=== PATIENT | male | born 1985 | race Caucasian/White ===

== ENCOUNTER 2021-12-06 13:10 | Emergency (ER) | payer OTHER ==
[~2021-12-06] VITALS: Ht 180.3 cm; Wt 90.9 kg
[2021-12-06] MEDS ORDERED: IBUP-1506 PO (13:22)
[2021-12-06 13:23] VITALS: BP 137/45
[2021-12-06] MEDS ORDERED: ONDANSETRON HCL 4 MG TABLET PO ONE (14:30)
[2021-12-06] MEDS ORDERED: DIPHENOXYLATE/ATROP 2.5-0.025 MG TABLET PO ONE (14:30)
[2021-12-06] MEDS ORDERED: ACETAMINOPHEN 500 MG TABLET PO ONE (14:30)
[2021-12-06] MEDS ORDERED: IBUP-2077 PO (14:40)
[2021-12-06] MEDS ORDERED: CLOB15CR10 TP (15:54)
[2021-12-06] MEDS ORDERED: DIPH-654 PO (15:54)
[2021-12-06] MEDS ORDERED: ACET-66 PO (15:54)
[2021-12-06] MEDS ORDERED: ONDA-104 PO (15:54)
[2021-12-06 16:33] LABS: COVID AG,FIA SOURCE NASAL SWAB
== END 2021-12-06 17:23 | disposition home or self-care (01) ==
LOC: EMS 13:30
DX: K52.9 Noninfective gastroenteritis and colitis, unspecified (principal); L30.9 Dermatitis, unspecified; F17.210 Nicotine dependence, cigarettes, uncomplicated; M79.10 Myalgia, unspecified site; R09.89 Other specified symptoms and signs involving the circulatory and respiratory systems; Z20.822 Contact with and (suspected) exposure to COVID-19
CPT/HCPCS: 99283; 87426; Q0162

== ENCOUNTER 2022-03-10 02:37 | Emergency (ER) | payer OTHER ==
[~2022-03-10] VITALS: Ht 172.7 cm; Wt 79.0 kg
[~2022-03-10 02:37] MED LIST: ACET-66 PO; CLOB15CR10 TP; DIPH-654 PO; IBUP-2077 PO; ONDA-104 PO
[2022-03-10] MEDS ORDERED: CefTRIAXone SODIUM 1 GM/VIAL IM ONE (03:45)
[2022-03-10] MEDS ORDERED: DOXYCYCLINE HYCLATE 100 MG TABLET PO ONE (03:45)
[2022-03-10] MEDS ORDERED: ACETAMINOPHEN 500 MG TABLET PO ONE (03:45)
[2022-03-10] MEDS ORDERED: LIDOCAINE/PF 1% 2 ML VIAL IM ONE (03:45)
[2022-03-10] MEDS ORDERED: AMOX TR/POT CLAV 875 MG/125 MG TABLET PO ONE (03:45)
[2022-03-10] MEDS ORDERED: LIDOCAINE 5% TRANSDERMAL PATCH TD ONE (03:45)
[2022-03-10] MEDS ORDERED: AMOX1TAB16 PO (04:53)
[2022-03-10] MEDS ORDERED: DOXY-354 PO (04:53)
[2022-03-10 05:12] VITALS: BP 134/76
== END 2022-03-10 05:35 | disposition home or self-care (01) ==
LOC: EMS 02:37
DX: S20.212A Contusion of left front wall of thorax, initial encounter (principal); K03.81 Cracked tooth; F17.210 Nicotine dependence, cigarettes, uncomplicated; Z11.3 Encounter for screening for infections with a predominantly sexual mode of transmission; Y08.89XA Assault by other specified means, initial encounter; Y93.89 Activity, other specified; Y92.89 Other specified places as the place of occurrence of the external cause; Y99.8 Other external cause status
CPT/HCPCS: 71101; 99284; Z7502; Z7610

== ENCOUNTER 2022-03-12 17:21 | Emergency (ER) | payer OTHER ==
[~2022-03-12] VITALS: Ht 180.3 cm; Wt 95.5 kg
[~2022-03-12 17:21] MED LIST changes: +AMOX1TAB16 PO; +DOXY-354 PO
[2022-03-12 17:24] VITALS: BP 138/64
[2022-03-12] MEDS ORDERED: HYDR-4723 PO (19:02)
== END 2022-03-12 19:18 | disposition home or self-care (01) ==
LOC: EMS 17:21
DX: K08.89 Other specified disorders of teeth and supporting structures (principal); F17.210 Nicotine dependence, cigarettes, uncomplicated
CPT/HCPCS: 99281; Z7502

== ENCOUNTER 2022-03-13 23:35 | Emergency (ER) | payer OTHER ==
[~2022-03-13] VITALS: Ht 180.3 cm; Wt 96.1 kg
[~2022-03-13 23:35] MED LIST changes: +HYDR-4723 PO
[2022-03-14 00:59] VITALS: BP 129/85
[2022-03-14] MEDS ORDERED: DOXY-354 PO (01:03)
[2022-03-14] MEDS: DOXYCYCLINE HYCLATE 100 MG TABLET PO ONE ×2 (01:13→01:43)
[2022-03-14] MEDS: ACETAMINOPHEN 500 MG TABLET PO ONE ×2 (01:13→01:42)
== END 2022-03-14 02:03 | disposition left against medical advice (07) ==
LOC: EMS 23:36
DX: R31.9 Hematuria, unspecified (principal); A64 Unspecified sexually transmitted disease; F17.210 Nicotine dependence, cigarettes, uncomplicated
CPT/HCPCS: 99283

== ENCOUNTER 2022-03-19 21:02 | Emergency (ER) | payer OTHER ==
[~2022-03-19] VITALS: Ht 172.7 cm; Wt 81.8 kg
[~2022-03-19 21:02] MED LIST changes: -ACET-66 PO; -AMOX1TAB16 PO; -CLOB15CR10 TP; -DIPH-654 PO; -HYDR-4723 PO; -IBUP-2077 PO; -ONDA-104 PO
[2022-03-20 02:15] VITALS: BP 115/56
== END 2022-03-20 02:16 | disposition home or self-care (01) ==
LOC: EMS 21:02
DX: S22.32XA Fracture of one rib, left side, initial encounter for closed fracture (principal); S06.0X0A Concussion without loss of consciousness, initial encounter; F17.210 Nicotine dependence, cigarettes, uncomplicated; Y08.89XA Assault by other specified means, initial encounter; Y93.89 Activity, other specified; Y92.89 Other specified places as the place of occurrence of the external cause; Y99.8 Other external cause status
CPT/HCPCS: 70450; 71101; 99284

== ENCOUNTER 2022-03-24 12:48 | Emergency (ER) | payer OTHER | END 2022-03-24 14:59 | disposition left against medical advice (07) | LOC: EMS 13:00 | DX: Z53.21 Procedure and treatment not carried out due to patient leaving prior to being seen by health care provider (principal) ==

== ENCOUNTER 2022-03-25 21:49 | Emergency (ER) | payer OTHER ==
[~2022-03-25] VITALS: Ht 175.3 cm; Wt 84.1 kg
[2022-03-25 21:50] VITALS: BP 125/71
== END 2022-03-25 22:21 | disposition left against medical advice (07) ==
LOC: EMS 21:55
DX: M54.9 Dorsalgia, unspecified (principal); R51.9 Headache, unspecified; Z53.21 Procedure and treatment not carried out due to patient leaving prior to being seen by health care provider

== ENCOUNTER 2022-04-04 09:35 | Emergency (ER) | payer OTHER ==
[~2022-04-04] VITALS: Ht 180.3 cm; Wt 93.2 kg
[2022-04-04 09:52] VITALS: BP 133/84
== END 2022-04-04 13:30 | disposition left against medical advice (07) ==
LOC: EMS 09:37
DX: Z53.21 Procedure and treatment not carried out due to patient leaving prior to being seen by health care provider (principal)

== ENCOUNTER 2022-04-09 03:33 | Emergency (ER) | payer OTHER ==
[~2022-04-09] VITALS: Ht 180.3 cm; Wt 93.2 kg
[2022-04-09 03:42] VITALS: BP 150/86
== END 2022-04-09 06:52 | disposition left against medical advice (07) ==
LOC: EMS 03:34
DX: R31.9 Hematuria, unspecified (principal); Z53.21 Procedure and treatment not carried out due to patient leaving prior to being seen by health care provider

== ENCOUNTER 2022-04-13 07:43 | Emergency (ER) | payer OTHER ==
[~2022-04-13] VITALS: Ht 180.3 cm; Wt 95.5 kg
[2022-04-13 08:04] VITALS: BP 129/76
[2022-04-13] MEDS ORDERED: LIDOCAINE 5% TRANSDERMAL PATCH TD ONE (08:15)
== END 2022-04-13 08:41 | disposition left against medical advice (07) ==
LOC: EMS 07:44
DX: M54.50 Low back pain, unspecified (principal); F17.210 Nicotine dependence, cigarettes, uncomplicated
CPT/HCPCS: 99282

== ENCOUNTER 2022-04-30 00:37 | Emergency (ER) | payer OTHER ==
[~2022-04-30] VITALS: Ht 180.3 cm; Wt 93.2 kg
[2022-04-30] MEDS ORDERED: ACETAMINOPHEN 500 MG TABLET PO ONE (01:30)
[2022-04-30 02:20] VITALS: BP 135/88
== END 2022-04-30 02:53 | disposition left against medical advice (07) ==
LOC: EMS 00:38
DX: S09.90XA Unspecified injury of head, initial encounter (principal); F17.210 Nicotine dependence, cigarettes, uncomplicated; X58.XXXA Exposure to other specified factors, initial encounter; Y93.89 Activity, other specified; Y92.89 Other specified places as the place of occurrence of the external cause; Y99.8 Other external cause status
CPT/HCPCS: 99282; Z7502; Z7610

== ENCOUNTER 2022-05-11 03:04 | Emergency (ER) | payer OTHER ==
[~2022-05-11] VITALS: Ht 180.3 cm; Wt 93.2 kg
[2022-05-11 03:06] VITALS: BP 139/88
== END 2022-05-11 03:28 | disposition left against medical advice (07) ==
LOC: EMS 03:09
DX: S00.93XA Contusion of unspecified part of head, initial encounter (principal); F17.210 Nicotine dependence, cigarettes, uncomplicated; Y04.8XXA Assault by other bodily force, initial encounter; Y93.89 Activity, other specified; Y92.89 Other specified places as the place of occurrence of the external cause; Y99.8 Other external cause status
CPT/HCPCS: 99281; Z7502

== ENCOUNTER 2022-05-25 09:13 | Emergency (ER) | payer OTHER ==
[~2022-05-25] VITALS: Ht 180.3 cm; Wt 95.5 kg
[2022-05-25 09:17] VITALS: BP 140/83
== END 2022-05-25 10:19 | disposition left against medical advice (07) ==
LOC: EMS 09:16
DX: Z53.21 Procedure and treatment not carried out due to patient leaving prior to being seen by health care provider (principal)
CPT/HCPCS: 99281; Z7502

== ENCOUNTER 2022-06-03 23:22 | Emergency (ER) | payer OTHER ==
[~2022-06-03] VITALS: Ht 180.3 cm; Wt 93.2 kg
[2022-06-04] MEDS ORDERED: ACETAMINOPHEN 500 MG TABLET PO ONE (00:45)
[2022-06-04 02:00] VITALS: BP 122/72
[2022-06-04] MEDS ORDERED: IBUP-45 PO (10:01)
== END 2022-06-04 03:27 | disposition left against medical advice (07) ==
LOC: EMS 23:23
DX: S09.90XA Unspecified injury of head, initial encounter (principal); F17.210 Nicotine dependence, cigarettes, uncomplicated; F14.90 Cocaine use, unspecified, uncomplicated; W22.8XXA Striking against or struck by other objects, initial encounter; Y93.89 Activity, other specified; Y92.89 Other specified places as the place of occurrence of the external cause; Y99.8 Other external cause status
CPT/HCPCS: 70450; 99284

== ENCOUNTER 2022-06-04 09:59 | Emergency (ER) | payer OTHER ==
[~2022-06-04] VITALS: Ht 177.8 cm; Wt 88.6 kg
[2022-06-04] MEDS ORDERED: IBUP-45 PO (10:01)
[2022-06-04 10:19] VITALS: BP 144/88
== END 2022-06-04 10:39 | disposition home or self-care (01) ==
LOC: EMS 10:02
DX: S09.90XA Unspecified injury of head, initial encounter (principal); F17.210 Nicotine dependence, cigarettes, uncomplicated; F14.90 Cocaine use, unspecified, uncomplicated; Y04.8XXA Assault by other bodily force, initial encounter; Y93.89 Activity, other specified; Y92.89 Other specified places as the place of occurrence of the external cause; Y99.8 Other external cause status
CPT/HCPCS: 99281; Z7502

== ENCOUNTER 2022-06-13 00:47 | Emergency (ER) | payer OTHER ==
[~2022-06-13] VITALS: Ht 180.3 cm; Wt 90.9 kg
[~2022-06-13 00:47] MED LIST changes: -DOXY-354 PO; +IBUP-45 PO
[2022-06-13 01:19] VITALS: BP 109/68
== END 2022-06-13 01:21 | disposition home or self-care (01) ==
LOC: EMS 00:49
DX: R26.2 Difficulty in walking, not elsewhere classified (principal); F17.210 Nicotine dependence, cigarettes, uncomplicated; F15.90 Other stimulant use, unspecified, uncomplicated; Z59.00 Homelessness unspecified
CPT/HCPCS: 99281; Z7502

== ENCOUNTER 2022-06-17 18:56 | Emergency (ER) | payer OTHER ==
[~2022-06-17] VITALS: Ht 180.3 cm; Wt 81.8 kg
[2022-06-17 21:05] VITALS: BP 117/78
== END 2022-06-17 22:34 | disposition home or self-care (01) ==
LOC: EMS 18:57
DX: S50.312A Abrasion of left elbow, initial encounter (principal); F17.210 Nicotine dependence, cigarettes, uncomplicated; F15.90 Other stimulant use, unspecified, uncomplicated; F14.90 Cocaine use, unspecified, uncomplicated; Z76.5 Malingerer [conscious simulation]; Z59.00 Homelessness unspecified; X58.XXXA Exposure to other specified factors, initial encounter; Y93.89 Activity, other specified; Y92.89 Other specified places as the place of occurrence of the external cause; Y99.8 Other external cause status
CPT/HCPCS: 99281; Z7502

== ENCOUNTER 2022-06-28 08:07 | Emergency (ER) | payer OTHER | END 2022-06-28 08:23 | disposition left against medical advice (07) | LOC: EMS 08:11 | DX: Z53.21 Procedure and treatment not carried out due to patient leaving prior to being seen by health care provider (principal) ==

== ENCOUNTER 2022-06-29 02:31 | Emergency (ER) | payer OTHER ==
[~2022-06-29] VITALS: Ht 180.3 cm; Wt 95.0 kg
[2022-06-29 03:15] VITALS: BP 132/70
== END 2022-06-29 05:54 | disposition home or self-care (01) ==
LOC: EMS 02:35
DX: S62.92XA Unspecified fracture of left hand, initial encounter for closed fracture (principal); F14.90 Cocaine use, unspecified, uncomplicated; F19.90 Other psychoactive substance use, unspecified, uncomplicated; F17.210 Nicotine dependence, cigarettes, uncomplicated; Z59.00 Homelessness unspecified; V23.49XA Other motorcycle driver injured in collision with car, pick-up truck or van in traffic accident, initial encounter; Y93.55 Activity, bike riding; Y92.89 Other specified places as the place of occurrence of the external cause; Y99.8 Other external cause status
CPT/HCPCS: 99283

== ENCOUNTER 2022-07-16 04:24 | Emergency (ER) | payer OTHER ==
[~2022-07-16] VITALS: Ht 180.3 cm; Wt 90.9 kg
[2022-07-16 06:13] VITALS: BP 138/73
[2022-07-16] MEDS ORDERED: IBUP-1554 PO (06:40)
[2022-07-16] MEDS ORDERED: IBUPROFEN 600 MG TABLET PO ONE (06:45)
[2022-07-16] MEDS ORDERED: IBUP-1492 PO (23:39)
== END 2022-07-16 06:51 | disposition home or self-care (01) ==
LOC: EMS 04:25
DX: S60.222A Contusion of left hand, initial encounter (principal); F17.210 Nicotine dependence, cigarettes, uncomplicated; F15.90 Other stimulant use, unspecified, uncomplicated; F14.90 Cocaine use, unspecified, uncomplicated; Z59.00 Homelessness unspecified; X58.XXXA Exposure to other specified factors, initial encounter; Y93.89 Activity, other specified; Y92.89 Other specified places as the place of occurrence of the external cause; Y99.8 Other external cause status
CPT/HCPCS: 99283

== ENCOUNTER 2022-07-16 22:03 | Emergency (ER) | payer OTHER ==
[~2022-07-16] VITALS: Ht 180.3 cm; Wt 91.0 kg
[~2022-07-16 22:03] MED LIST changes: +IBUP-1554 PO
[2022-07-16 22:45] VITALS: BP 127/90
[2022-07-16] MEDS ORDERED: IBUPROFEN 600 MG TABLET PO ONE (23:15)
[2022-07-16] MEDS ORDERED: IBUP-1492 PO (23:39)
== END 2022-07-17 03:30 | disposition home or self-care (01) ==
LOC: EMS 22:04
DX: S80.01XA Contusion of right knee, initial encounter (principal); F17.210 Nicotine dependence, cigarettes, uncomplicated; F15.90 Other stimulant use, unspecified, uncomplicated; F14.90 Cocaine use, unspecified, uncomplicated; Z59.00 Homelessness unspecified; V19.9XXA Pedal cyclist (driver) (passenger) injured in unspecified traffic accident, initial encounter; Y93.89 Activity, other specified; Y92.89 Other specified places as the place of occurrence of the external cause; Y99.8 Other external cause status
CPT/HCPCS: 99283

== ENCOUNTER 2022-08-06 23:29 | Emergency (ER) | payer OTHER ==
[~2022-08-06] VITALS: Ht 180.3 cm; Wt 95.0 kg
[~2022-08-06 23:29] MED LIST changes: +IBUP-1492 PO; -IBUP-45 PO
[2022-08-07 01:31] LABS: APPEARANCE,URINE CLEAR (CLEAR); BILIRUBIN,URINE NEGATIVE (NEGATIVE); GLUCOSE, URINE (UA) NEGATIVE (NEGATIVE); KETONES,URINE NEGATIVE (NEGATIVE); LEUKOCYTE ESTERASE ,URINE SMALL (NEGATIVE); NITRATE,URINE NEGATIVE (NEGATIVE); OCCULT BLOOD,URINE NEGATIVE (NEGATIVE); PROTEIN,URINE NEGATIVE (NEGATIVE); SPECIFIC GRAVITIY, URINE 1.027 (1.003-1.030)
[2022-08-07] MEDS ORDERED: CEPH-558 PO (01:37)
[2022-08-07] MEDS ORDERED: CEPHALEXIN MONOHYDRATE 500 MG CAPSULE PO ONE (01:45)
[2022-08-07 01:48] LABS: BACTERIA,URINE None Seen /HPF (None Seen); RBC,URINE None Seen /HPF (0-2); SQUAMOUS EPITHELIAL CELL,UR None Seen /LPF (None Seen)
[2022-08-07 02:18] VITALS: BP 132/71; PULSE 80; RESP 20; TEMP 97.3
== END 2022-08-07 02:18 | disposition home or self-care (01) ==
LOC: EMS 23:30
DX: N39.0 Urinary tract infection, site not specified (principal); F17.210 Nicotine dependence, cigarettes, uncomplicated; F15.90 Other stimulant use, unspecified, uncomplicated; F14.90 Cocaine use, unspecified, uncomplicated; Z59.00 Homelessness unspecified
CPT/HCPCS: 81001; 87086; 87186; 99283

== ENCOUNTER 2022-08-12 02:34 | Emergency (ER) | payer OTHER ==
[~2022-08-12] VITALS: Ht 180.3 cm; Wt 84.0 kg
[~2022-08-12 02:34] MED LIST changes: +CEPH-558 PO
[2022-08-12 05:26] VITALS: BP 139/80; PULSE 72; RESP 18; TEMP 97.9
[2022-08-12 05:58] LABS: APPEARANCE,URINE CLEAR (CLEAR); BILIRUBIN,URINE NEGATIVE (NEGATIVE); GLUCOSE, URINE (UA) NEGATIVE (NEGATIVE); LEUKOCYTE ESTERASE ,URINE NEGATIVE (NEGATIVE); NITRATE,URINE NEGATIVE (NEGATIVE); OCCULT BLOOD,URINE NEGATIVE (NEGATIVE); PH,URINE 6.5 (5.0-8.0); PROTEIN,URINE NEGATIVE (NEGATIVE); SPECIFIC GRAVITIY, URINE 1.026 (1.003-1.030); UROBILINOGEN,URINE <=1.0 mg/dL (<=1.0)
== END 2022-08-12 05:44 | disposition home or self-care (01) ==
LOC: EMS 02:34
DX: R30.0 Dysuria (principal); F17.210 Nicotine dependence, cigarettes, uncomplicated; F15.90 Other stimulant use, unspecified, uncomplicated; F14.90 Cocaine use, unspecified, uncomplicated; Z59.00 Homelessness unspecified
CPT/HCPCS: 81003; 99283

== ENCOUNTER 2022-08-27 09:37 | Emergency (ER) | payer OTHER ==
[~2022-08-27] VITALS: Ht 180.3 cm; Wt 93.1 kg
[2022-08-27 09:44] VITALS: TEMP 98.4
[2022-08-27] MEDS ORDERED: ONDANSETRON HCL 4 MG TABLET PO ONE (12:15)
[2022-08-27 12:51] VITALS: BP 143/96; PULSE 90; RESP 16
== END 2022-08-27 12:52 | disposition home or self-care (01) ==
LOC: EMS 09:40
DX: K52.9 Noninfective gastroenteritis and colitis, unspecified (principal); F17.210 Nicotine dependence, cigarettes, uncomplicated; R50.9 Fever, unspecified; Z59.00 Homelessness unspecified
CPT/HCPCS: 99283; Q0162

== ENCOUNTER 2022-08-31 17:37 | Emergency (ER) | payer OTHER ==
[~2022-08-31] VITALS: Ht 180.3 cm; Wt 93.2 kg
[2022-08-31 17:42] VITALS: BP 136/81; PULSE 88; RESP 18; TEMP 98.6
== END 2022-08-31 18:56 | disposition left against medical advice (07) ==
LOC: EMS 17:39
DX: R10.84 Generalized abdominal pain (principal); Z53.21 Procedure and treatment not carried out due to patient leaving prior to being seen by health care provider
CPT/HCPCS: 99281; Z7502

== ENCOUNTER 2022-09-01 21:21 | Emergency (ER) | payer OTHER ==
[~2022-09-01] VITALS: Ht 180.3 cm; Wt 93.2 kg
[~2022-09-01 21:21] MED LIST changes: -CEPH-558 PO; -IBUP-1492 PO
[2022-09-01 21:56] VITALS: BP 119/70; PULSE 75; RESP 16; TEMP 98.2
== END 2022-09-01 23:36 | disposition home or self-care (01) ==
LOC: EMS 21:21
DX: S00.11XA Contusion of right eyelid and periocular area, initial encounter (principal); F17.210 Nicotine dependence, cigarettes, uncomplicated; X58.XXXA Exposure to other specified factors, initial encounter; Y93.89 Activity, other specified; Y92.89 Other specified places as the place of occurrence of the external cause; Y99.8 Other external cause status
CPT/HCPCS: 99282; Z7502

== ENCOUNTER 2022-09-03 22:43 | Emergency (ER) | payer OTHER | END 2022-09-03 23:35 | disposition left against medical advice (07) | LOC: EMS 22:43 | DX: Z53.21 Procedure and treatment not carried out due to patient leaving prior to being seen by health care provider (principal) ==

== ENCOUNTER 2022-09-12 00:46 | Emergency (ER) | payer OTHER ==
[~2022-09-12] VITALS: Ht 180.3 cm; Wt 92.5 kg
[~2022-09-12 00:46] MED LIST changes: +ACET-3385 PO; +IBUP-1492 PO
[2022-09-12 00:47] VITALS: BP 133/71; PULSE 81; RESP 20; TEMP 98.8
[2022-09-12] MEDS ORDERED: IBUPROFEN 600 MG TABLET PO ONE (02:00)
== END 2022-09-12 02:37 | disposition still patient (30) ==
LOC: EMS 00:47
DX: S40.012A Contusion of left shoulder, initial encounter (principal); Z59.00 Homelessness unspecified; V19.9XXA Pedal cyclist (driver) (passenger) injured in unspecified traffic accident, initial encounter; Y93.89 Activity, other specified; Y92.89 Other specified places as the place of occurrence of the external cause; Y99.8 Other external cause status
CPT/HCPCS: 99283

== ENCOUNTER 2022-09-26 21:05 | Emergency (ER) | payer OTHER ==
[~2022-09-26] VITALS: Ht 180.3 cm; Wt 95.5 kg
[2022-09-26 21:28] VITALS: TEMP 98.7
[2022-09-26 23:17] LABS: COVID AG,FIA SOURCE NASAL SWAB
[2022-09-26 23:26] LABS: RAPID GROUP A STREP NEGATIVE (NEGATIVE)
[2022-09-26 23:27] LABS: INFLUENZA TYPE A NEGATIVE FOR TYPE A (NEGATIVE); INFLUENZA TYPE B NEGATIVE FOR TYPE B (NEGATIVE)
[2022-09-27] MEDS ORDERED: ACETAMINOPHEN 500 MG TABLET PO ONE (01:00)
[2022-09-27 01:22] VITALS: BP 128/83; PULSE 72; RESP 15
== END 2022-09-27 01:23 | disposition home or self-care (01) ==
LOC: EMS 21:05
DX: J02.9 Acute pharyngitis, unspecified (principal); Z59.00 Homelessness unspecified; Z20.822 Contact with and (suspected) exposure to COVID-19
CPT/HCPCS: 87430; 87804; 99283

== ENCOUNTER 2022-09-28 19:32 | Emergency (ER) | payer OTHER ==
[~2022-09-28] VITALS: Ht 180.3 cm; Wt 95.5 kg
[2022-09-28 20:07] VITALS: BP 126/81; PULSE 111; RESP 13; TEMP 98.6
== END 2022-09-28 22:00 | disposition left against medical advice (07) ==
LOC: EMS 19:33
DX: M54.9 Dorsalgia, unspecified (principal); Z53.21 Procedure and treatment not carried out due to patient leaving prior to being seen by health care provider
CPT/HCPCS: 99281; Z7502

== ENCOUNTER 2022-10-06 00:39 | Emergency (ER) | payer OTHER ==
[~2022-10-06] VITALS: Ht 180.3 cm; Wt 100.0 kg
[2022-10-06 01:18] VITALS: BP 140/82; PULSE 105; RESP 20; TEMP 98.6
[2022-10-06 01:44] LABS: APPEARANCE,URINE CLEAR (CLEAR); BILIRUBIN,URINE NEGATIVE (NEGATIVE); GLUCOSE, URINE (UA) NEGATIVE (NEGATIVE); KETONES,URINE NEGATIVE (NEGATIVE); LEUKOCYTE ESTERASE ,URINE NEGATIVE (NEGATIVE); NITRATE,URINE NEGATIVE (NEGATIVE); OCCULT BLOOD,URINE NEGATIVE (NEGATIVE); PROTEIN,URINE NEGATIVE (NEGATIVE); SPECIFIC GRAVITIY, URINE 1.014 (1.003-1.030); UROBILINOGEN,URINE <=1.0 mg/dL (<=1.0)
[2022-10-06 01:59] LABS: BACTERIA,URINE None Seen /HPF (None Seen); RBC,URINE None Seen /HPF (0-2); WBC,URINE None Seen /HPF (0-5)
[2022-10-06 02:00] LABS: SQUAMOUS EPITHELIAL CELL,UR Rare /LPF (None Seen); TRANSITIONAL EPI CELLS,URINE None Seen /LPF (None Seen)
== END 2022-10-06 03:20 | disposition home or self-care (01) ==
LOC: EMS 00:41
DX: R31.9 Hematuria, unspecified (principal); Z59.00 Homelessness unspecified
CPT/HCPCS: 81001; 99283

== ENCOUNTER 2022-10-06 23:42 | Emergency (ER) | payer OTHER | END 2022-10-06 23:45 | disposition left against medical advice (07) | LOC: EMS 23:42 | DX: Z53.21 Procedure and treatment not carried out due to patient leaving prior to being seen by health care provider (principal) ==

== ENCOUNTER 2022-10-19 04:30 | Emergency (ER) | payer OTHER | END 2022-10-19 05:38 | disposition left against medical advice (07) | LOC: EMS 04:32 | DX: Z53.21 Procedure and treatment not carried out due to patient leaving prior to being seen by health care provider (principal) ==

== ENCOUNTER 2022-10-30 08:21 | Emergency (ER) | payer OTHER ==
[~2022-10-30] VITALS: Ht 180.3 cm; Wt 90.9 kg
[2022-10-30] MEDS ORDERED: IBUP-2070 PO (08:23)
[2022-10-30 08:25] VITALS: BP 127/81; PULSE 106; RESP 18; TEMP 98.5
[2022-10-30 10:21] LABS: APPEARANCE,URINE CLEAR (CLEAR); BILIRUBIN,URINE NEGATIVE (NEGATIVE); COLOR,URINE LIGHT YELLOW (YELLOW); GLUCOSE, URINE (UA) NEGATIVE (NEGATIVE); KETONES,URINE NEGATIVE (NEGATIVE); LEUKOCYTE ESTERASE ,URINE NEGATIVE (NEGATIVE); NITRATE,URINE NEGATIVE (NEGATIVE); OCCULT BLOOD,URINE NEGATIVE (NEGATIVE); PROTEIN,URINE NEGATIVE (NEGATIVE); UROBILINOGEN,URINE <=1.0 mg/dL (<=1.0)
[2022-10-30 10:23] LABS: BACTERIA,URINE None Seen /HPF (None Seen); RBC,URINE None Seen /HPF (0-2); WBC,URINE None Seen /HPF (0-5)
[2022-10-30 10:27] LABS: ALCOHOL, URINE DRUG SCREEN NEGATIVE (NEGATIVE); AMPHET/METH SCREEN,URINE POSITIVE (NEGATIVE); BARBITURATE SCREEN, URINE NEGATIVE (NEGATIVE); BENZODIAZEPINES SCREEN,URINE NEGATIVE (NEGATIVE); CANNABINOID SCREEN,URINE NEGATIVE (NEGATIVE); COCAINE SCREEN,URINE NEGATIVE (NEGATIVE); METHADONE SCREEN, URINE NEGATIVE (NEGATIVE); OPIATE SCREEN,URINE NEGATIVE (NEGATIVE); PHENCYCLIDINE SCREEN,URINE NEGATIVE (NEGATIVE)
== END 2022-10-30 10:12 | disposition left against medical advice (07) ==
LOC: EMS 08:25
DX: F15.10 Other stimulant abuse, uncomplicated (principal); R31.9 Hematuria, unspecified; F17.210 Nicotine dependence, cigarettes, uncomplicated; Z59.00 Homelessness unspecified
CPT/HCPCS: 80307; 81001; 99283

== ENCOUNTER 2022-10-31 00:40 | Emergency (ER) | payer OTHER ==
[~2022-10-31] VITALS: Ht 180.3 cm; Wt 90.9 kg
[~2022-10-31 00:40] MED LIST changes: +IBUP-2070 PO
[2022-10-31 01:06] VITALS: TEMP 97.7
[2022-10-31 01:17] VITALS: BP 139/72; PULSE 90; RESP 17
== END 2022-10-31 02:03 | disposition home or self-care (01) ==
LOC: EMS 00:41
DX: R31.9 Hematuria, unspecified (principal); F15.10 Other stimulant abuse, uncomplicated; F17.210 Nicotine dependence, cigarettes, uncomplicated; Z59.00 Homelessness unspecified
CPT/HCPCS: 99281; Z7502

== ENCOUNTER 2022-12-04 02:06 | Emergency (ER) | payer OTHER ==
[~2022-12-04] VITALS: Ht 180.3 cm; Wt 114.0 kg
[~2022-12-04 02:06] MED LIST changes: -ACET-3385 PO; -IBUP-1492 PO; -IBUP-1554 PO
[2022-12-04 02:14] VITALS: TEMP 98.5
[2022-12-04] MEDS ORDERED: SODIUM CHLORIDE 0.9% 3,400 ML IV ONE (02:45)
[2022-12-04 02:56] LABS: BASOPHILS % (AUTO) 0.7 % (0.0-2.0); EOSINOPHILS % (AUTO) 2.3 % (1.0-6.0); HEMATOCRIT 35.2 % (41-53); HEMOGLOBIN 11.8 g/dL (13.5-17.5); LYMPHOCYTES % (AUTO) 31.7 % (22.0-44.0); MEAN CORPUSCULAR HEMOGLOBIN 29.4 pg (26.0-34.0); MEAN CORPUSCULAR HGB CONC 33.5 G/dL (31.0-37.0); MEAN CORPUSCULAR VOLUME 88 fL (80-100); MONOCYTES # (AUTO) 0.6 K/uL (0.1-1.0); MONOCYTES % (AUTO) 9.9 % (2.0-9.0); NEUTROPHILS # (AUTO) 3.5 K/uL (1.8-7.7); NEUTROPHILS % (AUTO) 55.4 % (40.0-70.0); PLATELET COUNT (AUTO) 279 K/uL (150-450); RED CELL DISTRIBUTION WIDTH 14.5 % (11.5-14.5); WHITE BLOOD COUNT (AUTO) 6.2 K/uL (4.5-11.0)
[2022-12-04 04:30] VITALS: BP 132/71; PULSE 78; RESP 16
== END 2022-12-04 06:14 | disposition home or self-care (01) ==
LOC: EMS 02:15
DX: R53.1 Weakness (principal); F17.210 Nicotine dependence, cigarettes, uncomplicated; Z59.00 Homelessness unspecified
CPT/HCPCS: 36415; 85025; J7030; 96360; 99284

== ENCOUNTER 2022-12-21 05:22 | Emergency (ER) | payer OTHER ==
[~2022-12-21] VITALS: Ht 180.3 cm; Wt 93.2 kg
[2022-12-21 05:35] VITALS: BP 120/72; PULSE 93; RESP 20; TEMP 98.8
== END 2022-12-21 11:04 | disposition left against medical advice (07) ==
LOC: EMS 05:24
DX: N50.812 Left testicular pain (principal); Z53.21 Procedure and treatment not carried out due to patient leaving prior to being seen by health care provider
CPT/HCPCS: 99281; Z7502

== ENCOUNTER 2023-01-22 18:28 | Emergency (ER) | payer OTHER ==
[~2023-01-22] VITALS: Ht 180.3 cm; Wt 90.9 kg
[2023-01-22 18:34] VITALS: TEMP 98.3
[2023-01-22 19:41] LABS: COVID AG,FIA SOURCE NASAL SWAB
[2023-01-22 20:08] LABS: SARS-COV2 (COVID) ANTIGEN,FIA Negative (Negative)
[2023-01-22 20:10] LABS: INFLUENZA TYPE A NEGATIVE FOR TYPE A (NEGATIVE); INFLUENZA TYPE B NEGATIVE FOR TYPE B (NEGATIVE)
[2023-01-22] MEDS ORDERED: TraMADol HCL 50 MG TABLET PO ONE (20:15)
[2023-01-22] MEDS ORDERED: KETOROLAC TROMETHAMINE 60 MG/2 ML VIAL IM ONE (20:15)
[2023-01-22] MEDS ORDERED: TRAM-559 PO (21:48)
[2023-01-22 21:51] VITALS: BP 122/81; PULSE 94; RESP 18
[2023-01-27 12:58] LABS: INFLUENZA A-RTPCR,COMBO NEGATIVE FOR FLU A (NEGATIVE); INFLUENZA B-RTPCR,COMBO NEGATIVE FOR FLU B (NEGATIVE); RESPIRATORY SYNCYTIAL VRS-PCR NEGATIVE (NEGATIVE); SARS COVID19 RTPCR, COMBO NEGATIVE (NEGATIVE)
== END 2023-01-22 21:57 | disposition home or self-care (01) ==
LOC: EMS 18:28
DX: F15.10 Other stimulant abuse, uncomplicated (principal); R51.9 Headache, unspecified; F17.210 Nicotine dependence, cigarettes, uncomplicated; Z59.00 Homelessness unspecified; Z87.820 Personal history of traumatic brain injury; Z20.822 Contact with and (suspected) exposure to COVID-19
CPT/HCPCS: 99285; 0241U; 70450; 87804; 96372; 87426; J1885; C9803

== ENCOUNTER 2023-02-18 22:12 | Emergency (ER) | payer OTHER ==
[~2023-02-18] VITALS: Ht 180.3 cm; Wt 87.0 kg
[~2023-02-18 22:12] MED LIST changes: -IBUP-2070 PO; +TRAM-559 PO
[2023-02-19] MEDS ORDERED: TraMADol HCL 50 MG TABLET PO ONE
[2023-02-19 00:08] VITALS: BP 125/83; PULSE 88; RESP 15; TEMP 98.8
== END 2023-02-19 01:00 | disposition left against medical advice (07) ==
LOC: EMS 22:13
DX: M54.50 Low back pain, unspecified (principal); F17.210 Nicotine dependence, cigarettes, uncomplicated; F15.90 Other stimulant use, unspecified, uncomplicated; Z59.00 Homelessness unspecified
CPT/HCPCS: 72072; 99283

== ENCOUNTER 2023-02-23 04:41 | Emergency (ER) | payer OTHER ==
[~2023-02-23] VITALS: Ht 180.3 cm; Wt 88.6 kg
[2023-02-23 04:46] VITALS: BP 124/73; PULSE 79; RESP 14; TEMP 98.7
[2023-02-23] MEDS ORDERED: ACETAMINOPHEN 500 MG TABLET PO ONE (06:30)
== END 2023-02-23 06:48 | disposition home or self-care (01) ==
LOC: EMS 04:42
DX: G89.29 Other chronic pain (principal); M54.9 Dorsalgia, unspecified; F17.210 Nicotine dependence, cigarettes, uncomplicated; F15.90 Other stimulant use, unspecified, uncomplicated; Z59.00 Homelessness unspecified
CPT/HCPCS: 99282; Z7502; Z7610

== ENCOUNTER 2023-03-06 02:27 | Emergency (ER) | payer OTHER ==
[~2023-03-06] VITALS: Ht 180.3 cm; Wt 81.8 kg
[2023-03-06 03:21] VITALS: TEMP 98.1
[2023-03-06 03:52] VITALS: BP 115/77; PULSE 82; RESP 16
[2023-03-06] MEDS ORDERED: IBUP-1492 PO (03:59)
[2023-03-06] MEDS ORDERED: IBUPROFEN 600 MG TABLET PO ONE (04:00)
== END 2023-03-06 04:22 | disposition home or self-care (01) ==
LOC: EMS 02:28
DX: S39.012A Strain of muscle, fascia and tendon of lower back, initial encounter (principal); F17.210 Nicotine dependence, cigarettes, uncomplicated; F15.90 Other stimulant use, unspecified, uncomplicated; Z59.00 Homelessness unspecified; X58.XXXA Exposure to other specified factors, initial encounter; Y93.89 Activity, other specified; Y92.89 Other specified places as the place of occurrence of the external cause; Y99.8 Other external cause status
CPT/HCPCS: 99282; Z7502; Z7610

== ENCOUNTER 2023-03-10 12:01 | Emergency (ER) | payer OTHER ==
[~2023-03-10] VITALS: Ht 182.9 cm; Wt 90.9 kg
[~2023-03-10 12:01] MED LIST changes: +IBUP-1492 PO
[2023-03-10 12:25] VITALS: BP 132/71; PULSE 98; RESP 18; TEMP 98.6
== END 2023-03-10 13:42 | disposition left against medical advice (07) ==
LOC: EMS 12:01
DX: R33.9 Retention of urine, unspecified (principal); Z53.21 Procedure and treatment not carried out due to patient leaving prior to being seen by health care provider
CPT/HCPCS: 99281; Z7502

== ENCOUNTER 2023-03-17 00:22 | Emergency (ER) | payer OTHER ==
[~2023-03-17] VITALS: Ht 180.3 cm; Wt 93.2 kg
[2023-03-17 00:29] VITALS: BP 123/76; PULSE 95; RESP 18; TEMP 97.9
== END 2023-03-17 05:11 | disposition left against medical advice (07) ==
LOC: EMS 00:24
DX: R51.9 Headache, unspecified (principal); Z53.21 Procedure and treatment not carried out due to patient leaving prior to being seen by health care provider
CPT/HCPCS: 99281; Z7502

== ENCOUNTER 2023-03-21 10:45 | Emergency (ER) | payer OTHER ==
[~2023-03-21] VITALS: Ht 180.3 cm; Wt 100.0 kg
[2023-03-21 10:49] VITALS: BP 120/86; PULSE 92; RESP 18; TEMP 97.9
== END 2023-03-21 12:31 | disposition left against medical advice (07) ==
LOC: EMS 10:46
DX: R07.81 Pleurodynia (principal); R51.9 Headache, unspecified; Z53.21 Procedure and treatment not carried out due to patient leaving prior to being seen by health care provider
CPT/HCPCS: 99281; Z7502

== ENCOUNTER 2023-03-24 01:52 | Emergency (ER) | payer OTHER ==
[~2023-03-24] VITALS: Ht 180.3 cm; Wt 90.9 kg
[2023-03-24 02:01] VITALS: BP 136/68; PULSE 69; RESP 15; TEMP 98.2
[2023-03-24] MEDS: ACETAMINOPHEN 500 MG TABLET PO ONE (03:11)
[2023-03-24] MEDS ORDERED: ACET-3385 PO (05:36)
== END 2023-03-24 06:32 | disposition home or self-care (01) ==
LOC: EMS 01:54
DX: S09.90XA Unspecified injury of head, initial encounter (principal); F17.210 Nicotine dependence, cigarettes, uncomplicated; F15.90 Other stimulant use, unspecified, uncomplicated; Z59.00 Homelessness unspecified; X58.XXXA Exposure to other specified factors, initial encounter; Y93.89 Activity, other specified; Y92.89 Other specified places as the place of occurrence of the external cause; Y99.8 Other external cause status
CPT/HCPCS: 70450; 72125; 99284

== ENCOUNTER 2023-04-03 05:11 | Emergency (ER) | payer OTHER ==
[~2023-04-03] VITALS: Ht 180.3 cm; Wt 93.2 kg
[~2023-04-03 05:11] MED LIST changes: +ACET-3385 PO; -IBUP-1492 PO; -TRAM-559 PO
[2023-04-03 05:24] VITALS: BP 119/89; PULSE 75; RESP 16; TEMP 98.4
== END 2023-04-03 06:25 | disposition home or self-care (01) ==
LOC: EMS 05:11
DX: Z53.21 Procedure and treatment not carried out due to patient leaving prior to being seen by health care provider (principal)
CPT/HCPCS: 99281; Z7502

== ENCOUNTER 2023-04-04 21:30 | Emergency (ER) | payer OTHER ==
[~2023-04-04] VITALS: Ht 180.3 cm; Wt 88.6 kg
[2023-04-04 21:59] VITALS: BP 131/73; PULSE 84; RESP 18; TEMP 98.1
== END 2023-04-05 | disposition left against medical advice (07) ==
LOC: EMS 21:30
DX: M79.632 Pain in left forearm (principal); Z53.21 Procedure and treatment not carried out due to patient leaving prior to being seen by health care provider
CPT/HCPCS: 99281; Z7502

== ENCOUNTER 2023-04-18 23:44 | Emergency (ER) | payer OTHER ==
[~2023-04-18] VITALS: Ht 180.3 cm; Wt 88.6 kg
[2023-04-19] VITALS: BP 122/68; PULSE 77; RESP 18; TEMP 98.4
[2023-04-19] MEDS: ACETAMINOPHEN 500 MG TABLET PO ONE (00:23)
== END 2023-04-19 01:00 | disposition home or self-care (01) ==
LOC: EMS 23:45
DX: F15.10 Other stimulant abuse, uncomplicated (principal); R10.10 Upper abdominal pain, unspecified; F17.210 Nicotine dependence, cigarettes, uncomplicated; Z76.5 Malingerer [conscious simulation]; Z59.00 Homelessness unspecified
CPT/HCPCS: 99282; Z7502; Z7610

== ENCOUNTER 2023-05-08 04:52 | Emergency (ER) | payer OTHER ==
[~2023-05-08] VITALS: Ht 180.3 cm; Wt 91.0 kg
[2023-05-08 05:22] VITALS: TEMP 98.2
[2023-05-08 05:30] VITALS: BP 121/67; PULSE 84; RESP 18
[2023-05-08] MEDS: ACETAMINOPHEN 500 MG TABLET PO ONE (06:15)
== END 2023-05-08 06:58 | disposition home or self-care (01) ==
LOC: EMS 04:54
DX: R51.9 Headache, unspecified (principal); F17.210 Nicotine dependence, cigarettes, uncomplicated; F15.90 Other stimulant use, unspecified, uncomplicated; Z59.00 Homelessness unspecified
CPT/HCPCS: 99282; Z7502; Z7610

== ENCOUNTER 2023-05-21 02:16 | Emergency (ER) | payer OTHER ==
[~2023-05-21] VITALS: Ht 180.3 cm; Wt 92.0 kg
[2023-05-21 02:24] VITALS: BP 129/76; PULSE 101; RESP 18; TEMP 98.3
== END 2023-05-21 03:43 | disposition left against medical advice (07) ==
LOC: EMS 02:18
DX: R33.9 Retention of urine, unspecified (principal); R31.9 Hematuria, unspecified; Z53.21 Procedure and treatment not carried out due to patient leaving prior to being seen by health care provider
CPT/HCPCS: 99281; Z7502

== ENCOUNTER 2023-05-26 02:55 | Emergency (ER) | payer OTHER ==
[~2023-05-26] VITALS: Ht 177.8 cm; Wt 90.9 kg
[2023-05-26 03:02] VITALS: BP 120/70; PULSE 81; RESP 16; TEMP 97.8
== END 2023-05-26 04:22 | disposition left against medical advice (07) ==
LOC: EMS 02:55
DX: M25.561 Pain in right knee (principal); Z53.21 Procedure and treatment not carried out due to patient leaving prior to being seen by health care provider
CPT/HCPCS: 99281; 73562-TC; Z7502

== ENCOUNTER 2023-05-28 23:17 | Emergency (ER) | payer OTHER ==
[~2023-05-28] VITALS: Ht 180.3 cm; Wt 93.2 kg
[2023-05-29 01:30] VITALS: BP 129/69; PULSE 74; RESP 18; TEMP 98.3
[2023-05-29] MEDS: KETOROLAC TROMETHAMINE 60 MG/2 ML VIAL IM ONE (02:16)
[2023-05-29] MEDS: METHOCARBAMOL 500 MG TABLET PO ONE (02:17)
== END 2023-05-29 05:05 | disposition home or self-care (01) ==
LOC: EMS 23:17
DX: S39.94XA Unspecified injury of external genitals, initial encounter (principal); F17.210 Nicotine dependence, cigarettes, uncomplicated; F15.90 Other stimulant use, unspecified, uncomplicated; Z59.00 Homelessness unspecified; W22.8XXA Striking against or struck by other objects, initial encounter; Y93.55 Activity, bike riding; Y92.89 Other specified places as the place of occurrence of the external cause; Y99.8 Other external cause status
CPT/HCPCS: 99281; J1885

== ENCOUNTER 2023-06-07 03:20 | Emergency (ER) | payer OTHER ==
[~2023-06-07] VITALS: Ht 177.8 cm; Wt 93.2 kg
[2023-06-07 03:30] VITALS: BP 122/69; PULSE 69; RESP 16; TEMP 98
[2023-06-07] MEDS: ACETAMINOPHEN 500 MG TABLET PO ONE (04:46)
== END 2023-06-07 05:09 | disposition home or self-care (01) ==
LOC: EMS 03:20
DX: M25.561 Pain in right knee (principal); F15.10 Other stimulant abuse, uncomplicated; Z59.00 Homelessness unspecified; F17.210 Nicotine dependence, cigarettes, uncomplicated
CPT/HCPCS: 99282; Z7502; Z7610

== ENCOUNTER 2023-06-22 02:59 | Emergency (ER) | payer OTHER ==
[~2023-06-22] VITALS: Ht 180.3 cm; Wt 90.9 kg
[2023-06-22 03:17] VITALS: BP 130/79; PULSE 99; RESP 16; TEMP 98.3
[2023-06-22] MEDS: IBUPROFEN 600 MG TABLET PO ONE (03:20)
[2023-06-22] MEDS: ACETAMINOPHEN 500 MG TABLET PO ONE (03:20)
== END 2023-06-22 03:23 | disposition home or self-care (01) ==
LOC: EMS 03:04
DX: M25.562 Pain in left knee (principal); M25.561 Pain in right knee; F17.210 Nicotine dependence, cigarettes, uncomplicated; F15.90 Other stimulant use, unspecified, uncomplicated; Z59.00 Homelessness unspecified
CPT/HCPCS: 99283

== ENCOUNTER 2023-07-08 23:01 | Emergency (ER) | payer OTHER ==
[~2023-07-08] VITALS: Ht 180.3 cm; Wt 95.0 kg
[2023-07-08 23:19] VITALS: BP 132/75; PULSE 103; RESP 18; TEMP 97.8
[2023-07-09] MEDS ORDERED: PENI500T2 PO (00:42)
[2023-07-09] MEDS ORDERED: IBUP-1492 PO (00:42)
[2023-07-09] MEDS: PENICILLIN V POTASSIUM 500 MG TABLET PO ONE (00:52)
[2023-07-09] MEDS: OxyCODONE HCL/ACETAMINOPHEN 5-325 MG TABLET PO ONE (00:53)
[2023-07-09] MEDS: IBUPROFEN 600 MG TABLET PO ONE (00:53)
== END 2023-07-09 01:06 | disposition home or self-care (01) ==
LOC: EMS 23:08
DX: K02.9 Dental caries, unspecified (principal); F17.210 Nicotine dependence, cigarettes, uncomplicated; F15.90 Other stimulant use, unspecified, uncomplicated; Z87.440 Personal history of urinary (tract) infections; Z59.00 Homelessness unspecified
CPT/HCPCS: 99284; Z7502; Z7610

== ENCOUNTER 2023-07-19 10:06 | Emergency (ER) | payer OTHER ==
[~2023-07-19] VITALS: Ht 180.3 cm; Wt 93.2 kg
[~2023-07-19 10:06] MED LIST changes: -ACET-3385 PO; +IBUP-1492 PO; +PENI500T2 PO
[2023-07-19 10:17] VITALS: BP 126/72; PULSE 123; RESP 14; TEMP 97.8
[2023-07-19] MEDS: SODIUM CHLORIDE 0.9% 500 ML IV ONE (11:04)
[2023-07-19 11:07] LABS: BASOPHILS % (AUTO) 0.3 % (0.0-2.0); EOSINOPHILS % (AUTO) 0.7 % (1.0-6.0); HEMATOCRIT 45.9 % (41-53); HEMOGLOBIN 15.2 g/dL (13.5-17.5); LYMPHOCYTES # (AUTO) 1.6 K/uL (1.0-4.8); LYMPHOCYTES % (AUTO) 16.7 % (22.0-44.0); MEAN CORPUSCULAR HEMOGLOBIN 29.7 pg (26.0-34.0); MEAN CORPUSCULAR VOLUME 90 fL (80-100); MONOCYTES # (AUTO) 0.5 K/uL (0.1-1.0); MONOCYTES % (AUTO) 5.5 % (2.0-9.0); NEUTROPHILS # (AUTO) 7.4 K/uL (1.8-7.7); NEUTROPHILS % (AUTO) 76.8 % (40.0-70.0); PLATELET COUNT (AUTO) 310 K/uL (150-450); RED BLOOD CELL COUNT(AUTO) 5.11 MIL/uL (4.50-5.90); RED CELL DISTRIBUTION WIDTH 14.2 % (11.5-14.5); WHITE BLOOD COUNT (AUTO) 9.7 K/uL (4.5-11.0)
[2023-07-19 11:20] LABS: ANION GAP 10 mmol/L (8-16); CALCIUM, TOTAL 9.5 mg/dL (8.8-10.5); CARBON DIOXIDE 28 mmol/L (22-29); CHLORIDE 100 mmol/L (98-107); CREATININE 1.13 mg/dL (0.60-1.30); GLOMERULAR FILTR. RATE CALC > 60 mL/min (>60); GLUCOSE,RANDOM 107 mg/dL (70-110); POTASSIUM 3.8 mmol/L (3.5-5.1); SODIUM SERUM 138 mmol/L (136-145); UREA NITROGEN, BLOOD 15 mg/dL (7-18)
== END 2023-07-19 12:04 | disposition home or self-care (01) ==
LOC: EMS 10:06
DX: R53.1 Weakness (principal); K52.9 Noninfective gastroenteritis and colitis, unspecified; F17.210 Nicotine dependence, cigarettes, uncomplicated; F15.90 Other stimulant use, unspecified, uncomplicated; Z87.440 Personal history of urinary (tract) infections; Z59.00 Homelessness unspecified
CPT/HCPCS: 99283; 96360; 80048; 85025; 36415; J7040

== ENCOUNTER 2023-07-28 02:11 | Emergency (ER) | payer OTHER | END 2023-07-28 02:27 | disposition left against medical advice (07) | LOC: EMS 02:11 | DX: R69 Illness, unspecified (principal); Z53.21 Procedure and treatment not carried out due to patient leaving prior to being seen by health care provider ==

== ENCOUNTER 2023-08-26 01:31 | Emergency (ER) | payer OTHER | END 2023-08-26 02:00 | disposition left against medical advice (07) | LOC: EMS 01:31 | DX: Z53.21 Procedure and treatment not carried out due to patient leaving prior to being seen by health care provider (principal) ==

== ENCOUNTER 2023-08-27 03:12 | Emergency (ER) | payer OTHER ==
[~2023-08-27] VITALS: Ht 180.3 cm; Wt 91.8 kg
[2023-08-27 03:15] VITALS: TEMP 97.9
[2023-08-27 05:54] LABS: APPEARANCE,URINE CLEAR (CLEAR); BILIRUBIN,URINE NEGATIVE (NEGATIVE); COLOR,URINE LIGHT YELLOW (YELLOW); GLUCOSE, URINE (UA) NEGATIVE (NEGATIVE); KETONES,URINE NEGATIVE (NEGATIVE); LEUKOCYTE ESTERASE ,URINE NEGATIVE (NEGATIVE); NITRATE,URINE NEGATIVE (NEGATIVE); OCCULT BLOOD,URINE NEGATIVE (NEGATIVE); PROTEIN,URINE NEGATIVE (NEGATIVE); SPECIFIC GRAVITIY, URINE 1.028 (1.003-1.030)
[2023-08-27 06:15] VITALS: BP 110/61; PULSE 82; RESP 20
== END 2023-08-27 06:56 | disposition home or self-care (01) ==
LOC: EMS 03:12
DX: R30.0 Dysuria (principal); F17.210 Nicotine dependence, cigarettes, uncomplicated; F15.10 Other stimulant abuse, uncomplicated
CPT/HCPCS: 81003; 99283

== ENCOUNTER 2023-09-12 01:17 | Emergency (ER) | payer OTHER ==
[~2023-09-12] VITALS: Ht 180.3 cm; Wt 93.2 kg
[2023-09-12 01:26] LABS: COVID AG,FIA SOURCE NASAL SWAB
[2023-09-12 01:39] LABS: INFLUENZA TYPE A NEGATIVE FOR TYPE A (NEGATIVE); INFLUENZA TYPE B NEGATIVE FOR TYPE B (NEGATIVE); SARS-COV2 (COVID) ANTIGEN,FIA Negative (Negative)
[2023-09-12] MEDS: IBUPROFEN 600 MG TABLET PO ONE (01:59)
[2023-09-12] MEDS: SODIUM CHLORIDE 0.9% 1,000 ML IV ONE (02:00)
[2023-09-12 03:00] VITALS: BP 141/76; PULSE 89; RESP 16; TEMP 97.3
== END 2023-09-12 03:18 | disposition home or self-care (01) ==
LOC: EMS 01:17
DX: J06.9 Acute upper respiratory infection, unspecified (principal); R53.1 Weakness; M79.10 Myalgia, unspecified site; F17.210 Nicotine dependence, cigarettes, uncomplicated; F15.10 Other stimulant abuse, uncomplicated; Z20.822 Contact with and (suspected) exposure to COVID-19
CPT/HCPCS: 71045; 87804; 99284

== ENCOUNTER 2023-09-18 01:57 | Emergency (ER) | payer OTHER | END 2023-09-18 03:20 | disposition left against medical advice (07) | LOC: EMS 01:57 | DX: M25.561 Pain in right knee (principal); Z53.21 Procedure and treatment not carried out due to patient leaving prior to being seen by health care provider ==

== ENCOUNTER 2023-09-18 18:09 | Emergency (ER) | payer OTHER ==
[~2023-09-18] VITALS: Ht 180.3 cm; Wt 93.2 kg
[2023-09-18 18:12] VITALS: TEMP 98.2
[2023-09-18 19:15] VITALS: BP 116/64; PULSE 87; RESP 18
[2023-09-18] MEDS: IBUPROFEN 600 MG TABLET PO ONE (22:17)
== END 2023-09-18 22:53 | disposition home or self-care (01) ==
LOC: EMS 18:09
DX: M25.561 Pain in right knee (principal); F17.210 Nicotine dependence, cigarettes, uncomplicated; F15.90 Other stimulant use, unspecified, uncomplicated; Z59.00 Homelessness unspecified
CPT/HCPCS: 96372; 99282; 99283

== ENCOUNTER 2023-09-26 20:05 | Emergency (ER) | payer OTHER ==
[~2023-09-26] VITALS: Ht 180.3 cm; Wt 93.2 kg
[2023-09-26 20:18] VITALS: TEMP 98
[2023-09-26 20:30] VITALS: BP 119/61; PULSE 71; RESP 17
== END 2023-09-26 22:58 | disposition home or self-care (01) ==
LOC: EMS 20:05
DX: M25.561 Pain in right knee (principal); F17.210 Nicotine dependence, cigarettes, uncomplicated; F15.90 Other stimulant use, unspecified, uncomplicated; Z59.00 Homelessness unspecified
CPT/HCPCS: 99283

== ENCOUNTER 2023-10-10 18:19 | Emergency (ER) | payer OTHER ==
[~2023-10-10] VITALS: Ht 175.3 cm; Wt 89.0 kg
[2023-10-10 18:36] VITALS: BP 124/74; PULSE 105; RESP 16; TEMP 98.1; O2SAT 98
[2023-10-10 20:26] LABS: APPEARANCE,URINE CLEAR (CLEAR); BILIRUBIN,URINE NEGATIVE (NEGATIVE); COLOR,URINE LIGHT YELLOW (YELLOW); GLUCOSE, URINE (UA) NEGATIVE (NEGATIVE); KETONES,URINE NEGATIVE (NEGATIVE); LEUKOCYTE ESTERASE ,URINE NEGATIVE (NEGATIVE); NITRATE,URINE NEGATIVE (NEGATIVE); OCCULT BLOOD,URINE NEGATIVE (NEGATIVE); PROTEIN,URINE TRACE mg/dL (NEGATIVE); SPECIFIC GRAVITIY, URINE 1.025 (1.003-1.030)
== END 2023-10-10 20:44 | disposition left against medical advice (07) ==
LOC: EMS 18:19
DX: F31.9 Bipolar disorder, unspecified (principal); R10.84 Generalized abdominal pain; F17.210 Nicotine dependence, cigarettes, uncomplicated; F15.90 Other stimulant use, unspecified, uncomplicated; Z59.00 Homelessness unspecified
CPT/HCPCS: 81003; 99283; 99406

== ENCOUNTER → 2023-10-24 | Emergency (ER) | payer OTHER ==
[~2023-10-24] VITALS: Ht 180.3 cm; Wt 93.2 kg
[2023-10-24 04:26] VITALS: BP 131/71; PULSE 105; RESP 18; TEMP 98.7; O2SAT 99
== END | disposition still patient (30) ==
LOC: EMS 04:19
DX: R10.84 Generalized abdominal pain (principal); R11.2 Nausea with vomiting, unspecified; Z53.21 Procedure and treatment not carried out due to patient leaving prior to being seen by health care provider

== ENCOUNTER 2023-11-06 01:04 | Emergency (ER) | payer OTHER ==
[~2023-11-06] VITALS: Ht 180.3 cm; Wt 90.9 kg
[2023-11-06 01:06] VITALS: BP 116/75; PULSE 87; RESP 18; TEMP 97.8; O2SAT 97
== END 2023-11-06 04:44 | disposition home or self-care (01) ==
LOC: EMS 01:04
DX: F15.10 Other stimulant abuse, uncomplicated (principal); R11.2 Nausea with vomiting, unspecified; F17.210 Nicotine dependence, cigarettes, uncomplicated; Z59.00 Homelessness unspecified
CPT/HCPCS: 74022; 99283

== ENCOUNTER 2024-01-31 18:40 | Emergency (ER) | payer OTHER ==
[~2024-01-31] VITALS: Ht 177.8 cm; Wt 86.4 kg
[2024-01-31 18:50] VITALS: TEMP 98.5
[2024-01-31 21:15] VITALS: BP 124/69; PULSE 89; RESP 17; O2SAT 99
== END 2024-01-31 22:34 | disposition left against medical advice (07) ==
LOC: EMS 18:40
DX: M79.671 Pain in right foot (principal); Z53.21 Procedure and treatment not carried out due to patient leaving prior to being seen by health care provider

== ENCOUNTER 2024-02-13 00:53 | Emergency (ER) | payer OTHER ==
[~2024-02-13] VITALS: Ht 180.3 cm; Wt 97.7 kg
[2024-02-13 01:04] VITALS: BP 120/64; PULSE 74; RESP 16; TEMP 98.1; O2SAT 97
== END 2024-02-13 01:54 | disposition left against medical advice (07) ==
LOC: EMS 00:53
DX: R30.0 Dysuria (principal); R31.9 Hematuria, unspecified; Z53.21 Procedure and treatment not carried out due to patient leaving prior to being seen by health care provider

== ENCOUNTER 2024-03-13 02:22 | Emergency (ER) | payer OTHER ==
[~2024-03-13] VITALS: Ht 180.3 cm; Wt 93.2 kg
[2024-03-13 02:28] VITALS: BP 136/86; PULSE 97; RESP 18; TEMP 98.3; O2SAT 95
[2024-03-13 03:02] LABS: PH,URINE DRUG SCREEN 5.5 (5.0-8.0)
[2024-03-13 03:09] LABS: ALCOHOL, URINE DRUG SCREEN NEGATIVE (NEGATIVE); AMPHET/METH SCREEN,URINE POSITIVE (NEGATIVE); BARBITURATE SCREEN, URINE NEGATIVE (NEGATIVE); BENZODIAZEPINES SCREEN,URINE NEGATIVE (NEGATIVE); CANNABINOID SCREEN,URINE NEGATIVE (NEGATIVE); COCAINE SCREEN,URINE NEGATIVE (NEGATIVE); METHADONE SCREEN, URINE NEGATIVE (NEGATIVE); OPIATE SCREEN,URINE NEGATIVE (NEGATIVE); PHENCYCLIDINE SCREEN,URINE NEGATIVE (NEGATIVE)
[2024-03-13] MEDS ORDERED: LORA-1000 PO (03:35)
[2024-03-13] MEDS: LORazepam 1 MG TABLET PO ONE (03:48)
== END 2024-03-13 03:51 | disposition home or self-care (01) ==
LOC: EMS 02:27
DX: F15.10 Other stimulant abuse, uncomplicated (principal); F41.9 Anxiety disorder, unspecified; F17.210 Nicotine dependence, cigarettes, uncomplicated; Z87.440 Personal history of urinary (tract) infections; Z59.00 Homelessness unspecified
CPT/HCPCS: 80307; 99283

== ENCOUNTER 2024-04-20 02:20 | Emergency (ER) | payer OTHER ==
[~2024-04-20] VITALS: Ht 180.3 cm; Wt 93.2 kg
[~2024-04-20 02:20] MED LIST changes: -IBUP-1492 PO; +LORA1TAB25 PO; -PENI500T2 PO
[2024-04-20 02:24] VITALS: BP 118/71; PULSE 70; RESP 18; TEMP 98; O2SAT 99
[2024-04-20] MEDS: IBUPROFEN 400 MG TABLET PO ONE (03:48)
[2024-04-20] MEDS: ACETAMINOPHEN 500 MG TABLET PO ONE (03:50)
== END 2024-04-20 05:46 | disposition home or self-care (01) ==
LOC: EMS 02:28
DX: S50.01XA Contusion of right elbow, initial encounter (principal); M23.92 Unspecified internal derangement of left knee; Z59.00 Homelessness unspecified; Z87.440 Personal history of urinary (tract) infections; V29.39XA Other motorcycle (driver) (passenger) injured in unspecified nontraffic accident, initial encounter; Y93.55 Activity, bike riding; Y92.89 Other specified places as the place of occurrence of the external cause; Y99.8 Other external cause status
CPT/HCPCS: 99283

== ENCOUNTER 2024-04-23 00:07 | Emergency (ER) | payer OTHER ==
[~2024-04-23] VITALS: Ht 177.8 cm; Wt 89.0 kg
[2024-04-23 00:31] VITALS: BP 140/79; PULSE 92; RESP 16; TEMP 97.9; O2SAT 100
== END 2024-04-23 05:51 | disposition home or self-care (01) ==
LOC: EMS 00:08
DX: F15.10 Other stimulant abuse, uncomplicated (principal); F17.210 Nicotine dependence, cigarettes, uncomplicated; Z59.00 Homelessness unspecified
CPT/HCPCS: 99281; Z7502

== ENCOUNTER 2024-04-24 14:41 | Emergency (ER) | payer OTHER | END 2024-04-24 15:48 | disposition left against medical advice (07) | LOC: EMS 14:46 | DX: Z53.21 Procedure and treatment not carried out due to patient leaving prior to being seen by health care provider (principal) ==

== ENCOUNTER 2024-05-13 14:01 | Emergency (ER) | payer OTHER ==
[~2024-05-13] VITALS: Ht 180.3 cm; Wt 93.2 kg
[2024-05-13 14:07] VITALS: BP 105/66; PULSE 91; RESP 18; TEMP 98.2; O2SAT 99
[2024-05-13] MEDS: SODIUM CHLORIDE 0.9% 1,000 ML IV ONE (15:07)
[2024-05-13] MEDS: METOCLOPRAMIDE HCL 5 MG/ML 2 ML VIAL IVP ONE (15:08)
[2024-05-13] MEDS: ONDANSETRON 4 MG TABLET PO ONE (15:08)
== END 2024-05-13 15:30 | disposition left against medical advice (07) ==
LOC: EMS 14:07
DX: A08.4 Viral intestinal infection, unspecified (principal); F17.210 Nicotine dependence, cigarettes, uncomplicated; Z87.440 Personal history of urinary (tract) infections; Z59.00 Homelessness unspecified
CPT/HCPCS: 99281; Q0162

== ENCOUNTER 2024-05-15 23:35 | Emergency (ER) | payer OTHER ==
[~2024-05-15] VITALS: Ht 180.3 cm; Wt 93.2 kg
[2024-05-15 23:44] VITALS: BP 130/71; PULSE 92; RESP 16; TEMP 98.5; O2SAT 99
[2024-05-16] MEDS: ONDANSETRON 4 MG TABLET PO ONE (00:15)
[2024-05-16] MEDS: ACETAMINOPHEN 500 MG TABLET PO ONE (00:15)
[2024-05-16] MEDS: OMEPRAZOLE 20 MG CAPSULE PO ONE (00:15)
[2024-05-16 00:27] LABS: BASOPHILS % (AUTO) 0.4 % (0.0-2.0); EOSINOPHILS % (AUTO) 2.3 % (1.0-6.0); HEMATOCRIT 41.9 % (41-53); HEMOGLOBIN 13.9 g/dL (13.5-17.5); LYMPHOCYTES # (AUTO) 2.4 K/uL (1.0-4.8); LYMPHOCYTES % (AUTO) 35.9 % (22.0-44.0); MEAN CORPUSCULAR HEMOGLOBIN 29.5 pg (26.0-34.0); MEAN CORPUSCULAR HGB CONC 33.1 G/dL (31.0-37.0); MEAN CORPUSCULAR VOLUME 89 fL (80-100); MONOCYTES # (AUTO) 0.5 K/uL (0.1-1.0); MONOCYTES % (AUTO) 7.2 % (2.0-9.0); NEUTROPHILS # (AUTO) 3.6 K/uL (1.8-7.7); NEUTROPHILS % (AUTO) 54.2 % (40.0-70.0); PLATELET COUNT (AUTO) 277 K/uL (150-450); RED BLOOD CELL COUNT(AUTO) 4.71 MIL/uL (4.50-5.90); RED CELL DISTRIBUTION WIDTH 13.7 % (11.5-14.5); WHITE BLOOD COUNT (AUTO) 6.7 K/uL (4.5-11.0)
[2024-05-16 00:38] LABS: ANION GAP 3 mmol/L (8-16); CALCIUM, TOTAL 8.8 mg/dL (8.8-10.5); CARBON DIOXIDE 32 mmol/L (22-29); CHLORIDE 104 mmol/L (98-107); CREATININE 0.87 mg/dL (0.60-1.30); GLOMERULAR FILTR. RATE CALC > 60 mL/min (>60); GLUCOSE,RANDOM 76 mg/dL (70-110); LIPASE 27 U/L (16-77); POTASSIUM 3.6 mmol/L (3.5-5.1); SODIUM SERUM 139 mmol/L (136-145); UREA NITROGEN, BLOOD 13 mg/dL (7-18)
[2024-05-16 00:57] LABS: APPEARANCE,URINE CLEAR (CLEAR); BILIRUBIN,URINE NEGATIVE (NEGATIVE); COLOR,URINE YELLOW (YELLOW); GLUCOSE, URINE (UA) NEGATIVE (NEGATIVE); KETONES,URINE NEGATIVE (NEGATIVE); LEUKOCYTE ESTERASE ,URINE NEGATIVE (NEGATIVE); NITRATE,URINE NEGATIVE (NEGATIVE); OCCULT BLOOD,URINE NEGATIVE (NEGATIVE); PH,URINE 5.5 (5.0-8.0); PROTEIN,URINE TRACE mg/dL (NEGATIVE); SPECIFIC GRAVITIY, URINE 1.033 (1.003-1.030); UROBILINOGEN,URINE <=1.0 mg/dL (<=1.0)
== END 2024-05-16 01:10 | disposition home or self-care (01) ==
LOC: EMS 23:35
DX: R10.13 Epigastric pain (principal); R11.0 Nausea; F17.210 Nicotine dependence, cigarettes, uncomplicated; Z87.440 Personal history of urinary (tract) infections; Z59.00 Homelessness unspecified
CPT/HCPCS: 99284; 80048; 81003; 83690; 85025; 36415; 93005; Q0162

== ENCOUNTER 2024-08-28 23:12 | Emergency (ER) | payer OTHER ==
[~2024-08-28] VITALS: Ht 180.3 cm; Wt 95.5 kg
[2024-08-28 23:25] VITALS: BP 128/76; PULSE 99; RESP 16; TEMP 98.1; O2SAT 98
[2024-08-29] MEDS: IBUPROFEN 600 MG TABLET PO ONE (01:59)
[2024-08-29] MEDS ORDERED: AMOX250C4 PO (04:59)
== END 2024-08-29 02:04 | disposition left against medical advice (07) ==
LOC: EMS 23:12
DX: H92.03 Otalgia, bilateral (principal); Z53.21 Procedure and treatment not carried out due to patient leaving prior to being seen by health care provider
CPT/HCPCS: 99282; Z7502

== ENCOUNTER 2024-08-29 04:35 | Emergency (ER) | payer OTHER ==
[~2024-08-29] VITALS: Ht 175.3 cm; Wt 86.4 kg
[2024-08-29 04:48] VITALS: BP 135/78; PULSE 98; RESP 16; TEMP 98.2; O2SAT 98
[2024-08-29] MEDS ORDERED: AMOX250C4 PO (04:59)
== END 2024-08-29 05:13 | disposition home or self-care (01) ==
LOC: EMS 04:40
DX: H66.93 Otitis media, unspecified, bilateral (principal); F17.210 Nicotine dependence, cigarettes, uncomplicated; F15.90 Other stimulant use, unspecified, uncomplicated; Z59.00 Homelessness unspecified
CPT/HCPCS: 99283; Z7502

== ENCOUNTER 2024-11-04 00:29 | Emergency (ER) | payer OTHER ==
[~2024-11-04] VITALS: Ht 180.3 cm; Wt 97.7 kg
[~2024-11-04 00:29] MED LIST changes: +AMOX250C4 PO; -LORA1TAB25 PO
[2024-11-04] MEDS: ACETAMINOPHEN 500 MG TABLET PO ONE (03:34)
[2024-11-04] MEDS: KETOROLAC TROMETHAMINE 30 MG/ML VIAL IM ONE (03:34)
[2024-11-04] MEDS: LIDOCAINE 5% TRANSDERMAL PATCH TD ONE (03:34)
[2024-11-04 04:00] VITALS: BP 115/79; PULSE 75; RESP 16; O2SAT 98
== END 2024-11-04 04:35 | disposition home or self-care (01) ==
LOC: EMS 00:30
DX: M25.562 Pain in left knee (principal); F20.9 Schizophrenia, unspecified; M19.90 Unspecified osteoarthritis, unspecified site; Z87.820 Personal history of traumatic brain injury; F17.210 Nicotine dependence, cigarettes, uncomplicated; F15.90 Other stimulant use, unspecified, uncomplicated; Z79.899 Other long term (current) drug therapy; Z59.00 Homelessness unspecified; V49.9XXA Car occupant (driver) (passenger) injured in unspecified traffic accident, initial encounter; Y93.89 Activity, other specified; Y92.410 Unspecified street and highway as the place of occurrence of the external cause; Y99.8 Other external cause status
CPT/HCPCS: 99283; 96372; J1885

== ENCOUNTER 2024-11-16 02:01 | Emergency (ER) | payer OTHER | END 2024-11-16 02:56 | disposition left against medical advice (07) | LOC: EMS 02:01 | DX: A05.9 Bacterial foodborne intoxication, unspecified (principal); Z53.21 Procedure and treatment not carried out due to patient leaving prior to being seen by health care provider ==

== ENCOUNTER 2024-11-17 22:22 | Emergency (ER) | payer OTHER ==
[~2024-11-17] VITALS: Ht 180.3 cm; Wt 97.7 kg
[2024-11-17 22:37] VITALS: BP 120/75; PULSE 89; RESP 18; TEMP 98.1; O2SAT 98
[2024-11-18] MEDS: ONDANSETRON HCL 4 MG/2 ML VIAL IVP ONE (00:06)
[2024-11-18] MEDS: SODIUM CHLORIDE 0.9% 1,000 ML IV ONE (00:06)
[2024-11-18] MEDS: ONDANSETRON 4 MG TABLET PO ONE (02:38)
== END 2024-11-18 02:42 | disposition home or self-care (01) ==
LOC: EMS 22:24
DX: R11.2 Nausea with vomiting, unspecified (principal); R19.7 Diarrhea, unspecified; F20.9 Schizophrenia, unspecified; M19.90 Unspecified osteoarthritis, unspecified site; F17.210 Nicotine dependence, cigarettes, uncomplicated; F15.90 Other stimulant use, unspecified, uncomplicated; Z87.820 Personal history of traumatic brain injury; Z59.00 Homelessness unspecified; Z79.899 Other long term (current) drug therapy
CPT/HCPCS: 99282; Q0162